=== PATIENT | female | born 1955 | race Caucasian/White ===

== ENCOUNTER 2018-01-09 12:26 | Inpatient (IN) ==
--- NOTE | 2018-01-09 12:56 | Emergency Department Note ---
Disposition Clinical Impression: Colitis Disposition: Admitted As Inpatient Condition: Fair General Adult HPI - General Chief complaint: ED Recheck/Abnormal Lab/Rx Stated complaint: Abnormal Labs Time Seen by Provider: 01/09/18 12:33 Source: patient Mode of arrival: private vehicle Limitations: no limitations Nursing Notes Reviewed: Yes Vital Signs Reviewed: Yes - History of Present Illness HPI Narrative: Patient is a 62-year-old female with a past medical history of central thrombocytosis treated with hydroxyurea, she is coming in today after she had some abnormal labs at her facility's office. Previous to that she had been feeling ill for the last week and a half endorsing diarrhea up to 10 times per day that is mucousy, headache, lightheadedness, room spinning dizziness, feeling tired, chills with subjective fevers, occasional palpitations, shortness of breath when she gets up too fast but not exertional, central abdominal pain, right lower quadrant cramping, urinary frequency, and left leg numbness for about 10 minutes the other day. She denies nausea or vomiting, runny nose, sore throat, cough, chest pain. She has had a number of vascular surgeries with Dr. kasper as her including a mesenteric bypass, some lower extremity bypasses, a cholecystectomy, appendectomy, hysterectomy, 2 strokes, and one heart attack. She states that she does not smoke, she does not drink, and she does not take any illegal or illicit drugs. She states that she takes Plavix, baby aspirin, levothyroxine, a cholesterol medication, and the hydroxyurea. She does not have any known allergies. Pain Scale: 0 - Related Data Home Medications Medication Instructions Recorded Confirmed Aspirin Enteric Coated [Aspirin EC] 81 mg PO DAILY 01/09/18 01/09/18 Clopidogrel [Plavix] 75 mg PO DAILY 01/09/18 01/09/18 FLUoxetine HCl [PROzac] 60 mg PO DAILY 01/09/18 01/09/18 Folic Acid [FA-8] 0.8 mg PO DAILY 01/09/18 01/09/18 HYDROcodone/Acet 5/325 mg [[place] 1 tab PO Q3H PRN 01/09/18 01/09/18 5-325 mg] Hydroxyurea [Hydrea] 500 mg PO DAILY 01/09/18 01/09/18 Levothyroxine [Synthroid] 100 mcg PO 0630 01/09/18 01/09/18 Multivitamin [One Daily Essential] 1 tab PO DAILY 01/09/18 01/09/18 Simvastatin [Zocor] 40 mg PO HS 01/09/18 01/09/18 Allergies Allergy/AdvReac Type Severity Reaction Status Date / Time bupropion [From Wellbutrin] AdvReac Seizure Verified 01/09/18 14:11 promethazine [From Phenergan] AdvReac Irritable Verified 01/09/18 14:11 Constitutional: Reports: fever, chills ENT ED: Denies: throat pain, congestion Cardiovascular: Reports: palpitations. Denies: chest pain, dyspnea on exertion Respiratory: Reports: dyspnea. Denies: cough, wheezes Gastrointestinal: Reports: abdominal pain, diarrhea. Denies: nausea, vomiting Genitourinary: Reports: frequency. Denies: urgency, dysuria Neurological: Reports: headache, numbness (left leg numbness x ten minutes the other day) Physical Exam - General Limitations: no limitations General appearance: alert, in no apparent distress - Head Head exam: atraumatic, normocephalic - Eye Eye exam: Present: normal appearance, PERRL - Chest Chest inspection: Present: normal inspection, symmetric chest wall rise - Respiratory Respiratory exam: Present: normal lung sounds bilaterally. Absent: respiratory distress, wheezes - Cardiovascular Cardiovascular exam: Present: regular rate, normal rhythm, systolic murmur ( best appreciated at right 2nd ICS) - Expanded Cardiovascular Exam Peripheral pulses: 2+: radial (R), radial (L), dorsalis pedis (R), dorsalis pedis (L) - Abdominal Exam Abdominal exam: Present: soft, tenderness, incision (LLQ incision, midline incision. well healed. ). Absent: distention, guarding Abdominal tenderness: Present: RUQ, RLQ - Neurological Exam Neurological exam: Present: alert, oriented X3 - Psychiatric Psychiatric exam: Present: normal affect, anxious - Skin Skin exam: Present: warm, dry, intact Course Course Narrative: Patient is reporting from PCP with an elevated white blood cell count, elevated platelets, and decreased potassium. She will be started on a sepsis workup, to include C. difficile PCR, and EKG, and full electrolyte panel. We will focus on source identification in the initial workup. Vital Signs Temperature 97.5 F L 01/09/18 12:28 Pulse Rate 98 01/09/18 12:28 Respiratory Rate 17 01/09/18 12:28 Blood Pressure 103/68 01/09/18 12:28 O2 Sat by Pulse Oximetry 97 01/09/18 12:28 Temperature 97.5 F L 01/09/18 13:02 Pulse Rate 75 01/09/18 17:45 Respiratory Rate 16 01/09/18 17:45 Blood Pressure 129/60 01/09/18 17:45 O2 Sat by Pulse Oximetry 100 01/09/18 17:45 Oxygen Delivery Oxygen Delivery Room Air Medical Decision Making - MDM Narrative Medical decision making narrative: Patient's lab work was concerning for hypokalemia as well as hypomagnesemia, in addition to an elevated lactic acid at 2.8. Her white blood cell count was somewhat decreased from yesterday's, although a CT scan of her abdomen revealed colonic wall thickening concerning for an infection. She was unable to provide a stool sample, so PCR for C. difficile is still pending. I gave her a dose of Flagyl and a dose of Cipro while she was in the emergency department. Her blood pressure remained borderline hypotensive so I gave her 2 liters of fluids, as well as repleted her potassium and magnesium. I spoke with the hospitalist who agrees to accept care of the patient for concern for sepsis and C. difficile. She remained comfortable while in the department and hemodynamically stable. - Medical Records Medical records reviewed: Yes I reviewed the patient's medical records. - Lab Data Lab results reviewed: Yes I reviewed the patient's lab results. Result diagrams: 01/09/18 13:25 01/09/18 13:25 Lab Results 01/09/18 01/09/18 01/09/18 Range/Units 13:25 13:25 13:25 WBC 18.3 H (4.3-11.1) K/mcL RBC 3.67 L (3.82-4.97) M/mcL Hgb 12.8 (11.5-15.4) g/dL Hct 38.6 (35.3-44.9) % MCV 105.2 H (83.0-100.0) fL MCH 34.9 H (28.0-33.3) pg MCHC 33.2 (31.6-35.5) g/dL RDW 14.2 (11.5-14.5) % Plt Count 872 H (140-400) K/mcL MPV 11.0 (9.4-12.4) fL Immature Gran % 0.7 (0-4) % Seg Neutrophils % 83.6 % Lymphocytes % 8.3 % Monocytes % 5.5 % Eosinophils % 1.2 % Basophils % 0.7 % Neutrophils # 15.3 H (1.6-8.9) K/mcL Lymphocytes # 1.5 (0.6-4.6) K/mcL Monocytes # 1.0 (0.0-1.3) K/mcL Eosinophils # 0.2 (0.0-0.6) K/mcL Basophils # 0.1 (0.0-0.2) K/mcL PT 13.8 H (9.4-12.1) Seconds INR 1.2 APTT 59.4 H (26.0-36.0) Seconds Sodium (136-145) mEq/L Potassium (3.5-5.1) mEq/L Chloride (98-107) mEq/L Carbon Dioxide (23-29) mEq/L BUN (8-23) mg/dL Creatinine (0.60-1.20) mg/dL Est GFR ( Amer) (> 60) Est GFR (Non-Af Amer) (> 60) BUN/Creatinine Ratio (6-26) Glucose (70-105) mg/dL Calculated Osmolality (280-300) Lactic Acid (0.5-2.2) mmol/L Calcium (8.6-10.3) mg/dL Phosphorus (2.7-4.5) mg/dL Magnesium (1.6-2.6) mg/dL Total Bilirubin 0.6 (0.3-1.0) mg/dL Direct Bilirubin 0.2 (0.0-0.2) mg/dL Indirect Bilirubin 0.4 (0.0-1.2) mg/dL AST 16 (13-39) Units/L ALT 16 (7-52) Units/L Alkaline Phosphatase 94 (34-104) Units/L Troponin I < 0.03 (< 0.04) ng/mL Serum Total Protein 6.6 (6.4-8.9) g/dL Albumin 3.5 (3.5-5.7) g/dL Globulin 3.1 (2.4-3.5) g/dL Albumin/Globulin Ratio 1.1 (1.1-2.2) Urine Color (Yellow) Urine Clarity (Clear) Urine pH (5.0-8.0) pH Units Ur Specific [place] (1.010-1.025) Urine Protein (Neg-Trace) mg/dL Urine Glucose (UA) (Normal) mg/dL Urine Ketones (Negative) mg/dL Urine Blood (Negative) Urine Nitrite (Negative) Urine Bilirubin (Negative) Urine Urobilinogen (Normal) mg/dL Ur Leukocyte Esterase (Negative) Urine Microscopic RBC (0-3) per hpf Urine Microscopic WBC (0-3) per hpf Ur Squamous Epith Cells (None-Few) per lpf Urine Bacteria (None-Few) per hpf Hyaline Casts (None-Few) per lpf Ur Culture Indicated? (NO) 01/09/18 01/09/18 01/09/18 Range/Units 13:25 13:25 14:25 WBC (4.3-11.1) K/mcL RBC (3.82-4.97) M/mcL Hgb (11.5-15.4) g/dL Hct (35.3-44.9) % MCV (83.0-100.0) fL MCH (28.0-33.3) pg MCHC (31.6-35.5) g/dL RDW (11.5-14.5) % Plt Count (140-400) K/mcL MPV (9.4-12.4) fL Immature Gran % (0-4) % Seg Neutrophils % % Lymphocytes % % Monocytes % % Eosinophils % % Basophils % % Neutrophils # (1.6-8.9) K/mcL Lymphocytes # (0.6-4.6) K/mcL Monocytes # (0.0-1.3) K/mcL Eosinophils # (0.0-0.6) K/mcL Basophils # (0.0-0.2) K/mcL PT (9.4-12.1) Seconds INR APTT (26.0-36.0) Seconds Sodium 139 (136-145) mEq/L Potassium 2.7 L (3.5-5.1) mEq/L Chloride 101 (98-107) mEq/L Carbon Dioxide 28 (23-29) mEq/L BUN 12 (8-23) mg/dL Creatinine 0.78 (0.60-1.20) mg/dL Est GFR ( Amer) > 60 (> 60) Est GFR (Non-Af Amer) > 60 (> 60) BUN/Creatinine Ratio 15 (6-26) Glucose 112 H (70-105) mg/dL Calculated Osmolality 289 (280-300) Lactic Acid 2.8 H (0.5-2.2) mmol/L Calcium 9.1 (8.6-10.3) mg/dL Phosphorus 2.8 (2.7-4.5) mg/dL Magnesium 1.4 L (1.6-2.6) mg/dL Total Bilirubin (0.3-1.0) mg/dL Direct Bilirubin (0.0-0.2) mg/dL Indirect Bilirubin (0.0-1.2) mg/dL AST (13-39) Units/L ALT (7-52) Units/L Alkaline Phosphatase (34-104) Units/L Troponin I (< 0.04) ng/mL Serum Total Protein (6.4-8.9) g/dL Albumin (3.5-5.7) g/dL Globulin (2.4-3.5) g/dL Albumin/Globulin Ratio (1.1-2.2) Urine Color Yellow (Yellow) Urine Clarity Clear (Clear) Urine pH 5.5 (5.0-8.0) pH Units Ur Specific [place] 1.020 (1.010-1.025) Urine Protein 100 H (Neg-Trace) mg/dL Urine Glucose (UA) Normal (Normal) mg/dL Urine Ketones Trace H (Negative) mg/dL Urine Blood Trace-lysed H (Negative) Urine Nitrite Negative (Negative) Urine Bilirubin Small H (Negative) Urine Urobilinogen Normal (Normal) mg/dL Ur Leukocyte Esterase Negative (Negative) Urine Microscopic RBC 5-15 H (0-3) per hpf Urine Microscopic WBC 5-15 H (0-3) per hpf Ur Squamous Epith Cells Many H (None-Few) per lpf Urine Bacteria None Seen (None-Few) per hpf Hyaline Casts Moderate H (None-Few) per lpf Ur Culture Indicated? NO (NO) - Radiology Data Radiology results reviewed: Yes I reviewed the patient's radiology results. Chest X-Ray 01/09/18 13:16 IMPRESSION: 1. No radiographic evidence of acute cardiopulmonary process. 2. Findings suggestive of COPD. D/ / Archie Perez MD / Archie Perez MD Interpreting Provider: Archie Perez MD Abdomen/Pelvis CT 01/09/18 14:11 IMPRESSION: Mild diffuse colonic wall thickening with minimal pericolonic inflammatory stranding adjacent to the right and left colon. Acute colitis is suspected-likely infectious or inflammatory. Ischemic colitis felt to be less likely due to diffuse distribution. Bilateral renal cortical cyst. At least 4 are hyperdense cyst on the left. There has been minimal increase size of some of these cysts since 2013 but all felt to be benign and need no additional follow-up. D/ / Zhen Hansen MD / Zhen Hansen MD Interpreting Provider: Zhen Hansen MD - EKG Data EKG #1 EKG attestation: Yes I reviewed and interpreted this EKG. EKG results narrative: HR 70, Rhythm sinus, axis normal. GA 123, QRS 82. No evidence of ST elevation or depression. U waves present in V3, V4, V5. Deep S wave in V1 and tall R wave in V5/V6, LVH may be present. Attestation Statement - Attestation Attestation: I, Hai Rodriguez, examined this patient and my medical decision-making was reviewed with the INTERPRETIVE NATURALIST/PA/Advanced Practice Nurse/Resident Physician. I agree with the documented findings, disposition and treatment plan as described except to the extent set forth below. 8-year-old female presents emergency Department with concerns of abnormal labs. Patient had not been feeling well over the past week, she began having multiple episodes of diarrhea today over the past week, described as without hematochezia or melena. Patient reports having taken an antibiotic within the past 3 months. 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 Patient had laboratory testing yesterday as outpatient from her PCP. She received a call today recommended she be evaluated in the emergency department. Evaluating the labs from yesterday, she had a leukocytosis greater than 24, a thrombocytosis greater than her baseline. She had a hypokalemia of 2.6 yesterday. We repeated labs today which showed similar results. She was also hypomagnesemic. She had an elevated lactate level. Patient had mild generalized tenderness to palpation of the abdomen. We ordered a C. difficile sample and have concerns for possible C. difficile as the cause of her symptoms. We will obtain a CT of the abdomen and pelvis secondary to her pain. Imaging is pending at this time however patient will likely be admitted to the hospital for further care and evaluation of her hypomagnesemia, hypokalemia and treatment of her diarrhea.
[2018-01-09] MEDS ORDERED: 0.9 % Sodium Chloride 1,000 ML IVC ONE ×2 (13:20→16:06)
[2018-01-09 13:43] LABS: Basophils # 0.1 K/mcL (0.0-0.2); Basophils % 0.7 %; Eosinophils # 0.2 K/mcL (0.0-0.6); Eosinophils % 1.2 %; Hematocrit 38.6 % (35.3-44.9); Hemoglobin 12.8 g/dL (11.5-15.4); Immature Granulocytes % 0.7 % (0-4); Lymphocytes # 1.5 K/mcL (0.6-4.6); Lymphocytes % 8.3 %; Mean Corpuscular HGB Conc 33.2 g/dL (31.6-35.5); Mean Corpuscular Hemoglobin 34.9 pg (28.0-33.3); Mean Corpuscular Volume 105.2 fL (83.0-100.0); Monocytes % 5.5 %; Neutrophils # 15.3 K/mcL (1.6-8.9); Platelet Count 872 K/mcL (140-400); Red Blood Count 3.67 M/mcL (3.82-4.97); Red Cell Distribution Width 14.2 % (11.5-14.5); Segmented Neutrophils % 83.6 %
[2018-01-09 13:47] LABS: INR 1.2; Prothrombin Time 13.8 Seconds (9.4-12.1)
[2018-01-09 13:50] LABS: Activated Partial Thrombo Time 59.4 Seconds (26.0-36.0)
[2018-01-09 14:06] LABS: BUN/Creatinine Ratio 15 (6-26); Blood Urea Nitrogen 12 mg/dL (8-23); Calcium 9.1 mg/dL (8.6-10.3); Carbon Dioxide 28 mEq/L (23-29); Chloride 101 mEq/L (98-107); Glucose 112 mg/dL (70-105); Magnesium 1.4 mg/dL (1.6-2.6); Osmolality,Calculated 289 (280-300); Phosphorous 2.8 mg/dL (2.7-4.5); Potassium 2.7 mEq/L (3.5-5.1); Sodium 139 mEq/L (136-145); eGFR For Non-African Americans > 60 (> 60)
[2018-01-09 14:08] LABS: Alanine Aminotransferase 16 Units/L (7-52); Albumin 3.5 g/dL (3.5-5.7); Albumin/Globulin Ratio 1.1 (1.1-2.2); Alkaline Phosphatase 94 Units/L (34-104); Aspartate Amino Transferase 16 Units/L (13-39); Bilirubin,Direct 0.2 mg/dL (0.0-0.2); Bilirubin,Indirect 0.4 mg/dL (0.0-1.2); Bilirubin,Total 0.6 mg/dL (0.3-1.0); Globulin 3.1 g/dL (2.4-3.5); Total Protein 6.6 g/dL (6.4-8.9)
[2018-01-09 14:09] LABS: Troponin I < 0.03 ng/mL (< 0.04)
[2018-01-09 14:38] LABS: Bacteria,Urine None Seen per hpf (None-Few); Bilirubin,Urine Small (Negative); Blood,Urine Trace-lysed (Negative); Clarity,Urine Clear (Clear); Color,Urine Yellow (Yellow); Glucose,Urine (UA) Normal (Normal); Ketones,Urine Trace mg/dL (Negative); Leukocyte Esterase,Urine Negative (Negative); Nitrite,Urine Negative (Negative); PH,Urine 5.5 pH Units (5.0-8.0); Protein,Urine 100 mg/dL (Neg-Trace); Squamous Epithelial Cell,Urine Many per lpf (None-Few); Urobilinogen,Urine Normal (Normal)
[2018-01-09 15:03] LABS: Hyaline Casts,Urine Moderate per lpf (None-Few)
[2018-01-09] MEDS ORDERED: MetroNIDAZOLE 500 MG/100 ML 500 MG/100 ML BAG IVPB ONE (15:40)
[2018-01-09] MEDS ORDERED: Ketorolac 15 MG/ML VIAL IVP ONE (16:11)
[2018-01-09] MEDS ORDERED: Ondansetron 4 MG/2 ML VIAL IVP PRN (16:47)
[2018-01-09] MEDS ORDERED: Naloxone 0.4 MG/ML INJ IVP PRN (16:47)
[2018-01-09] MEDS ORDERED: Acetaminophen 325 MG TABLET PO PRN (16:47)
--- NOTE | 2018-01-09 18:56 | Internal Med History&Physical ---
Date of Encounter: 01/09/18 Time of Encounter: 18:51 Internal Medicine - H&P: HPI Chief complaint: diarrhea Admitted From: Home Plans for Post Hospital Care: Home History of present illness: Ms. Talavera is a 62 year old female with past medical hx of primary thrombocytosis treated with hydroxyurea who presented to [facility] with complaint of diarrhea x approx 1 week. Pt states she had been on Clindamycin for upcoming dental work. She reprots having subjective fever and chills. She also reports some abdominal cramps. Denies bloody diarrhea. Denies N/V. States she continues to eat though she has diarrhea shortly after. Pt denies urinary symptoms such as frequency, urgency, or dysuria. In ED WBC 18.5, hgb 12.8, hct 38.6, Na 139, K 2.7. PT 13.8, INR 1.2. Urine appears contaminated with many squamous epith cells. CODE SATUS FULL CT abd and pelvis CT/CT abd pelvis wo no iv no oral IMPRESSION: Mild diffuse colonic wall thickening with minimal pericolonic inflammatory stranding adjacent to the right and left colon. Acute colitis is suspected-likely infectious or inflammatory. Ischemic colitis felt to be less likely due to diffuse distribution. Bilateral renal cortical cyst. At least 4 are hyperdense cyst on the left. There has been minimal increase size of some of these cysts since 2013 but all felt to be benign and need no additional follow-up. D/ / Zhen Hansen MD / Zhen Hansen MD Interpreting Provider: Zhen Hansen MD Past Med Surg Social Fam HX - Past Medical History Medical history: coronary artery disease, CVA, hyperlipidemia, hypertension, myocardial infarction, thyroid disease, other Additional medical history: central thrombocytopenia Psychiatric history: depression - Past Surgical History Additional surgical history: subclavian artery cleaned. multiple leg surgeries for circulation - Social History Smoking Status: Never smoker Smokeless Tobacco Status: No Alcohol use: none Drug use: none Internal Medicine - H&P: Meds Aspirin Enteric Coated [Aspirin EC] 81 mg PO DAILY 01/09/18 [History] Clopidogrel [Plavix] 75 mg PO DAILY 01/09/18 [History] FLUoxetine HCl [PROzac] 60 mg PO DAILY 01/09/18 [History] Folic Acid [FA-8] 0.8 mg PO DAILY 01/09/18 [History] HYDROcodone/Acet 5/325 mg [[place] 5-325 mg] 1 tab PO Q3H PRN 01/09/18 [History] Hydroxyurea [Hydrea] 500 mg PO DAILY 01/09/18 [History] Levothyroxine [Synthroid] 100 mcg PO 0630 01/09/18 [History] Multivitamin [One Daily Essential] 1 tab PO DAILY 01/09/18 [History] Simvastatin [Zocor] 40 mg PO HS 01/09/18 [History] 3 Allergy/AdvReac Type Severity Reaction Status Date / Time bupropion [From Wellbutrin] AdvReac Seizure Verified 01/09/18 14:11 promethazine [From Phenergan] AdvReac Irritable Verified 01/09/18 14:11 All Systems PM: A 10-system review of systems was performed and is negative for pertinent findings except as documented above in the HPI. - Constitutional Vitals: Temp Pulse Resp BP Pulse Ox 97.5 F L 75 16 129/60 100 01/09/18 13:02 01/09/18 17:45 01/09/18 17:45 01/09/18 17:45 01/09/18 17:45 General appearance: Present: A&O X 3, no acute distress Exam: . - Head Head exam: Present: atraumatic, normocephalic - Eye Eye exam: Present: PERRL, conjuntiva pink, sclera anicteric Pupils: Present: PERRL - Neck Neck exam general surgery: Present: supple, trachea midline. Absent: lymphadenopathy - Respiratory Respiratory exam: Present: CTAB. Absent: accessory muscle use, rales, rhonchi, wheezes - Cardiovascular Cardiovascular exam: Present: RRR, +S1, +S2. Absent: diastolic murmur, gallop, rubs, systolic murmur - GI/Abdominal GI/Abdominal exam: Present: normal bowel sounds, soft, no peritoneal signs. Absent: distended, tenderness - Extremities Exam Extremities exam: Present: warm, radial pulses palpable and symmetrical. Absent : calf tenderness, cyanotic, pedal edema - Neurological Exam Neurological exam: Present: CN II-XII intact, oriented X3, no focal deficits. Absent: pronater drift, facial droop, speech deficit - Skin Skin exam: Present: dry, intact Internal Med - H&P Results - Labs CBC & Chem 7: 01/09/18 13:25 01/09/18 13:25 - Assessment and plan (1) C. difficile colitis Current Visit: Yes Status: Acute Assessment and plan: Given one time dose Flagyl in ED. Will place on Vancomycin PO. Will continue with IVF for now Will check CBC in am. CT abd and pelvis results below. CT abd/pelvis CT/CT abd pelvis wo no iv no oral IMPRESSION: Mild diffuse colonic wall thickening with minimal pericolonic inflammatory stranding adjacent to the right and left colon. Acute colitis is suspected-likely infectious or inflammatory. Ischemic colitis felt to be less likely due to diffuse distribution. Bilateral renal cortical cyst. At least 4 are hyperdense cyst on the left. There has been minimal increase size of some of these cysts since 2013 but all felt to be benign and need no additional follow-up. D/ / Zhen Hansen MD / Zhen Hansen MD Interpreting Provider: Zhen Hansen MD (2) Hypokalemia Current Visit: Yes Status: Acute Assessment and plan: Given PO and IV in ED. Will check BMP in am and replace PRN. (3) Essential thrombocytosis Current Visit: Yes Status: Acute Assessment and plan: Pt on hydroxyurea. Plt 872. Follow up out pt with oncology as scheduled. - Time Spent With Patient Total time spent is greater than 50% in coordination of care (as documented) at patient's floor/unit and/or counseling patient: less than 15 minutes
[2018-01-09] MEDS ORDERED: *HR* HYDROcodone/Acet 5/325 mg TABLET PO PRN (19:01)
[2018-01-09] MEDS: 0.9 % Sodium Chloride 1,000 ML IVC SCH (20:02)
[2018-01-09] MEDS: Vancomycin Oral Soln 125 MG/2.5 ML UDC PO SCH (21:20)
[2018-01-10] MEDS: 0.9 % Sodium Chloride 1,000 ML IVC SCH (06:06)
[2018-01-10 06:30] LABS: Basophils # 0.1 K/mcL (0.0-0.2); Basophils % 0.7 %; Eosinophils # 0.3 K/mcL (0.0-0.6); Eosinophils % 2.1 %; Hematocrit 32.9 % (35.3-44.9); Immature Granulocytes % 0.7 % (0-4); Lymphocytes # 1.6 K/mcL (0.6-4.6); Lymphocytes % 10.4 %; Mean Corpuscular HGB Conc 32.2 g/dL (31.6-35.5); Mean Corpuscular Hemoglobin 34.2 pg (28.0-33.3); Mean Corpuscular Volume 106.1 fL (83.0-100.0); Monocytes % 6.2 %; Neutrophils # 12.4 K/mcL (1.6-8.9); Platelet Count 728 K/mcL (140-400); Red Cell Distribution Width 14.5 % (11.5-14.5); Segmented Neutrophils % 79.9 %
[2018-01-10 06:31] LABS: Hemoglobin 10.6 g/dL (11.5-15.4)
[2018-01-10 07:00] LABS: BUN/Creatinine Ratio 16 (6-26); Blood Urea Nitrogen 9 mg/dL (8-23); Calcium 8.1 mg/dL (8.6-10.3); Carbon Dioxide 24 mEq/L (23-29); Chloride 112 mEq/L (98-107); Glucose 98 mg/dL (70-105); Osmolality,Calculated 295 (280-300); Potassium 3.5 mEq/L (3.5-5.1); Sodium 143 mEq/L (136-145); eGFR For Non-African Americans > 60 (> 60)
[2018-01-10] MEDS: FLUoxetine 20 MG CAPSULE PO SCH (07:55)
[2018-01-10] MEDS: Hydroxyurea 500 MG CAPSULE PO SCH (07:55)
[2018-01-10] MEDS: Aspirin Enteric Coated 81 MG Tablet PO SCH (07:55)
[2018-01-10] MEDS: Vancomycin Oral Soln 125 MG/2.5 ML UDC PO SCH ×4 (07:56→22:21)
[2018-01-10] MEDS ORDERED: Multivit/Ca/Min/Fe/FA 1 TAB TABLET PO SCH (09:00)
[2018-01-10] MEDS ORDERED: (Folic Acid [Fa-8] 0.8 MG) PO SCH (09:00)
--- NOTE | 2018-01-10 09:00 | Electrocardiograph Report ---
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
--- NOTE | 2018-01-10 19:38 | Internal Med Progress Note ---
Hospitalist Progress Note - Encounter Date of Encounter: 01/10/18 Time of Encounter: 19:40 - Subjective Interval History: Pt states diarrhea down. Reports about 10 stools a day prior to admission. She denies fever or chills, denies N/V. Denies CP or SOB. - Exam Vitals: Temp Pulse Resp BP Pulse Ox 98.1 F 82 15 119/71 96 01/10/18 15:06 01/10/18 15:06 01/10/18 15:06 01/10/18 15:06 01/10/18 15:06 Exam: General appearance: Present: A&O X 3, no acute distress Exam: - Head Head exam: Present: atraumatic, normocephalic - Eye Eye exam: Present: PERRL, conjuntiva pink, sclera anicteric Pupils: Present: PERRL - Neck Neck exam general surgery: Present: supple, trachea midline. Absent: lymphadenopathy - Respiratory Respiratory exam: Present: CTAB. Absent: accessory muscle use, rales, rhonchi, wheezes - Cardiovascular Cardiovascular exam: Present: RRR, +S1, +S2. Absent: diastolic murmur, gallop, rubs, systolic murmur - GI/Abdominal GI/Abdominal exam: Present: normal bowel sounds, soft, no peritoneal signs. Absent: distended, tenderness - Extremities Exam Extremities exam: Present: warm, radial pulses palpable and symmetrical. Absent : calf tenderness, cyanotic, pedal edema - Neurological Exam Neurological exam: Present: CN II-XII intact, oriented X3, no focal deficits. Absent: pronater drift, facial droop, speech deficit - Skin Skin exam: Present: dry, intact - Assessment and Plan (1) C. difficile colitis Current Visit: Yes Status: Acute Assessment and Plan: diarrhea slowly improving. On liquid Vanc and will likely discharge on this for 14 day course. WBC down from 18.3 to 15.6 (2) Hypokalemia Current Visit: Yes Status: Acute Assessment and Plan: K went up from 2.7 to 3.5 and corrected (3) Essential thrombocytosis Current Visit: Yes Status: Acute Assessment and Plan: On hydroxyurea DVT Prophylaxis: SCD - Summary of Assessment and Plan Summary of Assessment and Plan: Ms. Talavera is a 62 year old female with past medical hx of primary thrombocytosis treated with hydroxyurea who presented to [facility] with complaint of diarrhea x approx 1 week. Pt states she had been on Clindamycin for upcoming dental work. She reprots having subjective fever and chills. She also reports some abdominal cramps. Denies bloody diarrhea. Denies N/V. States she continues to eat though she has diarrhea shortly after. Pt denies urinary symptoms such as frequency, urgency, or dysuria. - Time Spent with Patient Total time spent is greater than 50% in coordination of care (as documented) at patient's floor/unit and/or counseling patient: less than 15 minutes Plan of Care Discussed with: patient Internal Medicine: Result - Labs CBC & Chem 7: 01/10/18 05:41 01/10/18 05:41 Labs: Short CBC 01/10/18 Range/Units 05:41 WBC 15.6 H (4.3-11.1) K/mcL Hgb 10.6 L D (11.5-15.4) g/dL Hct 32.9 L (35.3-44.9) % Plt Count 728 H (140-400) K/mcL Neutrophils # 12.4 H (1.6-8.9) K/mcL BMP 01/10/18 05:41 Sodium 143 Potassium 3.5 D Chloride 112 H Carbon Dioxide 24 BUN 9 Creatinine 0.57 L Glucose 98 Calcium 8.1 L - ABG Interpretation ABG results: PT/INR, D-dimer PT 13.8 Seconds (9.4-12.1) H 01/09/18 13:25 Consult Discharge Plan - Plan Referrals: Iglesia Ray Jr, MD [Primary Care Provider] -
[2018-01-10] MEDS: Multivit/Ca/Min/Fe/FA 1 TAB TABLET PO SCH (22:21)
[2018-01-11 04:28] LABS: Basophils # 0.1 K/mcL (0.0-0.2); Basophils % 0.7 %; Eosinophils # 0.4 K/mcL (0.0-0.6); Eosinophils % 2.3 %; Hematocrit 35.1 % (35.3-44.9); Hemoglobin 11.5 g/dL (11.5-15.4); Immature Granulocytes % 0.6 % (0-4); Lymphocytes # 1.6 K/mcL (0.6-4.6); Lymphocytes % 9.9 %; Mean Corpuscular HGB Conc 32.8 g/dL (31.6-35.5); Mean Corpuscular Hemoglobin 34.3 pg (28.0-33.3); Mean Corpuscular Volume 104.8 fL (83.0-100.0); Monocytes # 0.9 K/mcL (0.0-1.3); Monocytes % 5.5 %; Neutrophils # 13.2 K/mcL (1.6-8.9); Platelet Count 819 K/mcL (140-400); Red Blood Count 3.35 M/mcL (3.82-4.97); Red Cell Distribution Width 14.4 % (11.5-14.5)
[2018-01-11 04:48] LABS: BUN/Creatinine Ratio 9 (6-26); Blood Urea Nitrogen 5 mg/dL (8-23); Calcium 8.5 mg/dL (8.6-10.3); Carbon Dioxide 26 mEq/L (23-29); Chloride 105 mEq/L (98-107); Glucose 91 mg/dL (70-105); Osmolality,Calculated 289 (280-300); Potassium 2.9 mEq/L (3.5-5.1); Sodium 141 mEq/L (136-145); eGFR For Non-African Americans > 60 (> 60)
[2018-01-11] MEDS: Hydroxyurea 500 MG CAPSULE PO SCH (09:41)
[2018-01-11] MEDS: Folic Acid 1 MG TABLET PO SCH (09:41)
[2018-01-11] MEDS: FLUoxetine 20 MG CAPSULE PO SCH (09:41)
[2018-01-11] MEDS: Aspirin Enteric Coated 81 MG Tablet PO SCH (09:41)
[2018-01-11] MEDS: Vancomycin Oral Soln 125 MG/2.5 ML UDC PO SCH ×4 (09:42→20:13)
--- NOTE | 2018-01-11 12:13 | Discharge Summary ---
- NOTES TO OUTPATIENT PROVIDER Notes to Outpatient Provider: PCP in 5 to 7 days Orders not resulted at time of discharge: Note created 01/11/2018 Actual discharge date 01/12/2018 Pt needs CBC with diff 01/17/2018 Send results to PCP Date of Encounter: 01/12/18 Time of Encounter: 12:11 - Discharge Diagnosis (1) C. difficile colitis Priority: Primary Status: Acute Assessment and Plan: Pt states she has not had diarrhea this morning so far. She denies fever, chills , N/V. Her WBC down to 12.1. She has been afebrile. She will be discharged on Vancomycin to complete total of 10 days of treatment. (2) Hypokalemia Priority: Primary Status: Acute Assessment and Plan: Replaced and will check prior to discharge. Also had low magnesium which was replaced. K at discharge 3.9, Mag 1.9 and corrected. (3) Essential thrombocytosis Priority: Secondary Status: Acute Assessment and Plan: On Hydroxyurea. (4) Leukocytosis (leucocytosis) Priority: Secondary Status: Acute Assessment and Plan: Likely due to Hydroxyurea. Pt is clinically much improved. and symptoms almost completely resolved. Follow up out pt with PCP and oncologist Qualifiers: Qualified Code(s): D72.829 - Elevated white blood cell count, unspecified Hospital course: Ms. Talavera is a 62 year old female with past medical hx of primary thrombocytosis treated with hydroxyurea who presented to [facility] with complaint of diarrhea x approx 1 week. Pt states she had been on Clindamycin for upcoming dental work. She reprots having subjective fever and chills. She also reports some abdominal cramps. Denies bloody diarrhea. Denies N/V. States she continues to eat though she has diarrhea shortly after. Pt denies urinary symptoms such as frequency, urgency, or dysuria. Her stool tested positive for C diff and she is being discharged to complete total of 10 days of PO Vancomycin. Discharge discussed with: patient - Time Spent with Patient Total time spent providing and/or coordinating discharge services: Greater than 30 minutes - Discharge Medications Prescriptions: Vancomycin Oral Soln [Firvanq] 125 mg PO QID #10 [facility] [place] Home Medications: Aspirin Enteric Coated [Aspirin EC] 81 mg PO DAILY 01/09/18 [History] Clopidogrel [Plavix] 75 mg PO DAILY 01/09/18 [History] FLUoxetine HCl [Prozac] 60 mg PO DAILY 01/09/18 [History] Folic Acid [FA-8] 0.8 mg PO DAILY 01/09/18 [History] HYDROcodone/Acet 5/325 mg [[place] 5-325 mg] 1 tab PO Q3H PRN 01/09/18 [History] Hydroxyurea [Hydrea] 500 mg PO DAILY 01/09/18 [History] Levothyroxine [Synthroid] 100 mcg PO 0630 01/09/18 [History] Multivitamin [One Daily Essential] 1 tab PO DAILY 01/09/18 [History] Simvastatin [Zocor] 40 mg PO HS 01/09/18 [History] Vancomycin Oral Soln [Firvanq] 125 mg PO QID #10 [facility] 01/11/18 [Rx] Allergies/Adverse Reactions: 3 Allergy/AdvReac Type Severity Reaction Status Date / Time bupropion [From Wellbutrin] AdvReac Seizure Verified 01/09/18 14:11 ciprofloxacin [From Cipro] AdvReac Itching Verified 01/10/18 07:16 promethazine [From Phenergan] AdvReac Irritable Verified 01/09/18 14:11 Date of admission: 01/09/18 16:47 Primary care physician: Iglesia Ray Jr, MD Discharging clinician: Mariposa Morfin Anticipated date of discharge: 01/11/18 - Constitutional Vitals: Temp Pulse Resp BP Pulse Ox 98.4 F 82 14 92/57 96 01/11/18 11:04 01/11/18 11:04 01/11/18 11:04 01/11/18 11:04 01/11/18 11:04 General appearance: Present: A&O X 3, no acute distress Exam: General appearance: Present: A&O X 3, no acute distress Exam: - Head Head exam: Present: atraumatic, normocephalic - Eye Eye exam: Present: PERRL, conjuntiva pink, sclera anicteric Pupils: Present: PERRL - Neck Neck exam general surgery: Present: supple, trachea midline. Absent: lymphadenopathy - Respiratory Respiratory exam: Present: CTAB. Absent: accessory muscle use, rales, rhonchi, wheezes - Cardiovascular Cardiovascular exam: Present: RRR, +S1, +S2. Absent: diastolic murmur, gallop, rubs, systolic murmur - GI/Abdominal GI/Abdominal exam: Present: normal bowel sounds, soft, no peritoneal signs. Absent: distended, tenderness - Extremities Exam Extremities exam: Present: warm, radial pulses palpable and symmetrical. Absent : calf tenderness, cyanotic, pedal edema - Neurological Exam Neurological exam: Present: CN II-XII intact, oriented X3, no focal deficits. Absent: pronater drift, facial droop, speech deficit - Skin Skin exam: Present: dry, intact - Patient Status Disposition: Home, Self-Care Condition: Good Overall status at discharge: patient is back to baseline - Discharge Instructions Instructions: Vancomycin (By mouth), Hypokalemia (DC), Clostridium Difficile Infection (DC) Follow Up With: Frankie Mazariegos [Partnered Physician] - 01/23/18 1:55 pm - Diet and Activity Activity: increase activity as tolerated Diet: regular diet
--- NOTE | 2018-01-11 14:26 | Internal Med Progress Note ---
Hospitalist Progress Note - Encounter Date of Encounter: 01/11/18 Time of Encounter: 14:24 - Subjective Interval History: Pt states diarrhea down. Reports about 10 stools a day prior to admission. She denies fever or chills, denies N/V. Denies CP or SOB. - Exam Vitals: Temp Pulse Resp BP Pulse Ox 98.4 F 82 14 92/57 96 01/11/18 11:04 01/11/18 11:04 01/11/18 11:04 01/11/18 11:04 01/11/18 11:04 Exam: General appearance: Present: A&O X 3, no acute distress Exam: - Head Head exam: Present: atraumatic, normocephalic - Eye Eye exam: Present: PERRL, conjuntiva pink, sclera anicteric Pupils: Present: PERRL - Neck Neck exam general surgery: Present: supple, trachea midline. Absent: lymphadenopathy - Respiratory Respiratory exam: Present: CTAB. Absent: accessory muscle use, rales, rhonchi, wheezes - Cardiovascular Cardiovascular exam: Present: RRR, +S1, +S2. Absent: diastolic murmur, gallop, rubs, systolic murmur - GI/Abdominal GI/Abdominal exam: Present: normal bowel sounds, soft, no peritoneal signs. Absent: distended, tenderness - Extremities Exam Extremities exam: Present: warm, radial pulses palpable and symmetrical. Absent : calf tenderness, cyanotic, pedal edema - Neurological Exam Neurological exam: Present: CN II-XII intact, oriented X3, no focal deficits. Absent: pronater drift, facial droop, speech deficit - Skin Skin exam: Present: dry, intact - Assessment and Plan (1) C. difficile colitis Current Visit: Yes Status: Acute Assessment and Plan: Pt states she has not had diarrhea this morning so far. She denies fever, chills , N/V. Her WBC however, was 16.3 but she has been afebrile. Will keep overnight and re check CBC in am. (2) Hypokalemia Current Visit: Yes Status: Acute Assessment and Plan: Pt's potassium had corrected tjo 3.5 01/10/2018 but down t0 2.9 today. Will replace and re check in am. (3) Essential thrombocytosis Current Visit: Yes Status: Acute Assessment and Plan: On Hdroxyurea DVT Prophylaxis: SCD - Summary of Assessment and Plan Summary of Assessment and Plan: Ms. Talavera is a 62 year old female with past medical hx of primary thrombocytosis treated with hydroxyurea who presented to [facility] with complaint of diarrhea x approx 1 week. Pt states she had been on Clindamycin for upcoming dental work. She reprots having subjective fever and chills. She also reports some abdominal cramps. Denies bloody diarrhea. Denies N/V. States she continues to eat though she has diarrhea shortly after. Pt denies urinary symptoms such as frequency, urgency, or dysuria. - Time Spent with Patient Total time spent is greater than 50% in coordination of care (as documented) at patient's floor/unit and/or counseling patient: less than 15 minutes Plan of Care Discussed with: patient Internal Medicine: Result - Labs CBC & Chem 7: 01/11/18 03:13 01/11/18 03:13 Labs: Short CBC 01/11/18 Range/Units 03:13 WBC 16.3 H (4.3-11.1) K/mcL Hgb 11.5 (11.5-15.4) g/dL Hct 35.1 L (35.3-44.9) % Plt Count 819 H (140-400) K/mcL Neutrophils # 13.2 H (1.6-8.9) K/mcL BMP 01/11/18 03:13 Sodium 141 Potassium 2.9 L Chloride 105 Carbon Dioxide 26 BUN 5 L Creatinine 0.53 L Glucose 91 Calcium 8.5 L - ABG Interpretation ABG results: PT/INR, D-dimer PT 13.8 Seconds (9.4-12.1) H 01/09/18 13:25 Consult Discharge Plan - Plan Referrals: Iglesia Ray Jr, MD [Primary Care Provider] - Prescriptions: Vancomycin Oral Soln [Firvanq] 125 mg PO QID #10 [facility]
[2018-01-11 15:29] LABS: Basophils # 0.1 K/mcL (0.0-0.2); Eosinophils # 0.3 K/mcL (0.0-0.6); Eosinophils % 2.5 %; Hematocrit 35.2 % (35.3-44.9); Hemoglobin 11.3 g/dL (11.5-15.4); Immature Granulocytes % 0.5 % (0-4); Lymphocytes # 1.5 K/mcL (0.6-4.6); Lymphocytes % 12.8 %; Mean Corpuscular HGB Conc 32.1 g/dL (31.6-35.5); Mean Corpuscular Hemoglobin 34.1 pg (28.0-33.3); Mean Corpuscular Volume 106.3 fL (83.0-100.0); Mean Platelet Volume 11.1 fL (9.4-12.4); Monocytes # 0.8 K/mcL (0.0-1.3); Monocytes % 6.5 %; Neutrophils # 9.1 K/mcL (1.6-8.9); Platelet Count 707 K/mcL (140-400); Red Blood Count 3.31 M/mcL (3.82-4.97); Red Cell Distribution Width 14.2 % (11.5-14.5); Segmented Neutrophils % 76.7 %
[2018-01-11] MEDS: Multivit/Ca/Min/Fe/FA 1 TAB TABLET PO SCH (20:12)
[2018-01-12 02:08] LABS: Basophils # 0.1 K/mcL (0.0-0.2); Basophils % 0.9 %; Eosinophils # 0.3 K/mcL (0.0-0.6); Eosinophils % 2.3 %; Hemoglobin 10.8 g/dL (11.5-15.4); Immature Granulocytes % 0.3 % (0-4); Lymphocytes # 1.9 K/mcL (0.6-4.6); Lymphocytes % 15.4 %; Mean Corpuscular HGB Conc 32.7 g/dL (31.6-35.5); Mean Corpuscular Hemoglobin 34.7 pg (28.0-33.3); Mean Corpuscular Volume 106.1 fL (83.0-100.0); Mean Platelet Volume 11.1 fL (9.4-12.4); Monocytes # 0.8 K/mcL (0.0-1.3); Monocytes % 6.5 %; Platelet Count 695 K/mcL (140-400); Red Blood Count 3.11 M/mcL (3.82-4.97); Red Cell Distribution Width 14.2 % (11.5-14.5); Segmented Neutrophils % 74.6 %
[2018-01-12 02:22] LABS: BUN/Creatinine Ratio 12 (6-26); Blood Urea Nitrogen 8 mg/dL (8-23); Calcium 8.3 mg/dL (8.6-10.3); Carbon Dioxide 27 mEq/L (23-29); Chloride 103 mEq/L (98-107); Glucose 160 mg/dL (70-105); Osmolality,Calculated 290 (280-300); Potassium 3.2 mEq/L (3.5-5.1); Sodium 139 mEq/L (136-145); eGFR For Non-African Americans > 60 (> 60)
[2018-01-12 08:37] LABS: Magnesium 1.2 mg/dL (1.6-2.6)
[2018-01-12] MEDS: Folic Acid 1 MG TABLET PO SCH (09:21)
[2018-01-12] MEDS: FLUoxetine 20 MG CAPSULE PO SCH (09:21)
[2018-01-12] MEDS: Aspirin Enteric Coated 81 MG Tablet PO SCH (09:21)
[2018-01-12] MEDS: Hydroxyurea 500 MG CAPSULE PO SCH (09:21)
[2018-01-12] MEDS: Vancomycin Oral Soln 125 MG/2.5 ML UDC PO SCH ×2 (09:22→12:19)
[2018-01-12 11:08] VITALS: BP 122/73
[2018-01-12] MEDS ORDERED: 0.9 % Sodium Chloride 250 ML ONE (11:41)
[2018-01-12 13:46] LABS: Magnesium 1.9 mg/dL (1.6-2.6); Potassium 3.9 mEq/L (3.5-5.1)
== END 2018-01-12 15:03 | disposition home or self-care (01) | DRG 373 ==
LOC: 3ANU 12:26 → EMEROOARM 12:26 → 3ANU 18:19
PROVIDERS: ADMIT Internal Medicine; ATTEND Internal Medicine